=== PATIENT | male | born 1960 | race Caucasian/White ===

== ENCOUNTER → 2018-02-08 | Outpatient (REF) | payer OTHER | LOC: M SMT 11:12 | DX: R97.20 Elevated prostate specific antigen [PSA] (principal) | CPT/HCPCS: 87086 ==

== ENCOUNTER → 2018-02-21 | Outpatient (REF) | payer OTHER ==
[2018-02-21 13:35] LABS: BASO # 0.1 10^3/uL (0.0-0.2); BASO % 1.1 % (0.0-1.0); EOS # 0.1 10^3/uL (0.0-0.50); EOS % 1.7 % (0.0-3.0); HEMATOCRIT 49.1 % (42.0-52.0); HEMOGLOBIN 16.9 g/dl (13.5-17.5); IMMATURE GRANULOCYTE % 0.4 % (0-3.0); LYMPH # 1.3 10^3/uL (1.5-4.5); LYMPH % 27.3 % (24.0-44.0); MEAN CORPUSCULAR HEMOGLOBIN 32.1 pg (27.0-33.0); MEAN CORPUSCULAR HGB CONC 34.4 g/dl (32.0-36.5); MEAN CORPUSCULAR VOLUME 93.3 fl (80.0-96.0); MONO # 0.4 10^3/uL (0.0-0.8); MONO % 8.3 % (0.0-5.0); NEUTROPHILS # 2.9 10^3/uL (1.8-7.7); NEUTROPHILS % 61.2 % (36.0-66.0); PLATELET COUNT, AUTOMATED 192 10^3/uL (150-450); RED BLOOD COUNT 5.26 10^6/uL (4.30-6.10); RED CELL DISTRIBUTION WIDTH 12.6 % (11.5-14.5); WHITE BLOOD COUNT 4.7 10^3/uL (4.0-10.0)
[2018-02-21 14:02] LABS: ERYTHROCYTE SEDIMENTATION RATE 2 mm/hr (0-20)
[2018-02-21 14:25] LABS: ALBUMIN 4.3 GM/DL (3.2-5.2); ALBUMIN/GLOBULIN RATIO 1.43 (1.00-1.93); ALKALINE PHOSPHATASE 59 U/L (45-117); ALT/SGPT 38 U/L (12-78); ANION GAP 8 MEQ/L (8-16); AST/SGOT 21 U/L (7-37); BILIRUBIN,TOTAL 0.5 MG/DL (0.2-1.0); BLOOD UREA NITROGEN 16 MG/DL (7-18); CALCIUM LEVEL 9.6 MG/DL (8.5-10.1); CARBON DIOXIDE LEVEL 28 MEQ/L (21-32); CHLORIDE LEVEL 103 MEQ/L (98-107); CREATININE FOR GFR 1.17 MG/DL (0.70-1.30); GLOMERULAR FILTRATION RATE > 60.0 (>56); GLUCOSE, FASTING 116 MG/DL (70-100); POTASSIUM SERUM 4.3 MEQ/L (3.5-5.1); RHEUMATOID FACTOR QUANT < 10.0 IU/ML (<15.0); SODIUM LEVEL 139 MEQ/L (136-145); TOTAL PROTEIN 7.3 GM/DL (6.4-8.2)
[2018-02-21 14:35] LABS: ESTIMATED AVERAGE GLUCOSE 117 MG/DL (60-110); HEMOGLOBIN A1c 5.7 %
[2018-02-22 09:57] LABS: PTT LUPUS TYPE ANTICOAG SCREEN 0.9 (0-1.2)
[2018-02-22 10:01] LABS: ALBUMIN 4.64 GM/DL (3.29-5.55); ALBUMIN % 63.6 % (55.8-66.1); ALPHA-1-GLOBULIN % 3.5 % (2.9-4.9); ALPHA-1-GLOBULINS 0.26 GM/DL (0.17-0.41); ALPHA-2-GLOBULINS 0.58 GM/DL (0.42-0.99); ALPHA-2-GLOBULINS % 7.9 % (7.1-11.8); BETA-1-GLOBULINS 0.39 GM/DL (0.28-0.60); BETA-1-GLOBULINS % 5.3 % (4.7-7.2); BETA-2-GLOBULINS 0.35 GM/DL (0.19-0.55); BETA-2-GLOBULINS % 4.8 % (3.2-6.5); GAMMA GLOBULIN % 14.9 % (11.1-18.8); GAMMA GLOBULINS 1.09 GM/DL (0.65-1.58)
[2018-02-27 00:06] LABS: ANTI DOUBLE STRAND-DNA AB 1 IU/mL (0-9); ANTINUCLEAR ANTIBODIES DIRECT Negative (Negative); CERULOPLASMIN 20.8 mg/dL (16.0-31.0); COPPER PLASMA 83 ug/dL (72-166); LEAD BLOOD ADULT 2 ug/dL (0-4); MERCURY LEVEL 1.6 ug/L (0.0-14.9); SJOGREN'S ANTI SS-A <0.2 AI (0.0-0.9); SJOGREN'S ANTI SS-B <0.2 AI (0.0-0.9); VITAMIN B1 LEVEL WHOLE BLOOD 137.5 nmol/L (66.5-200.0); VITAMIN B6,PYRIDOXAL PHOSPHATE 12.6 ug/L (5.3-46.7); VITAMIN E(ALPHA TOCOPHEROL) 12.2 mg/L (7.0-25.1); VITAMIN E(GAMMA TOCOPHEROL) 2.6 mg/L (0.5-5.5)
== END ==
LOC: M LABNEURO 08:51
DX: G62.9 Polyneuropathy, unspecified (principal)

== ENCOUNTER → 2018-05-16 | Outpatient (REF) | payer OTHER ==
[~2018-05-16] MED LIST: MEGA RED PO; [UNRECOGNIZED DRUG - OTHER] PO
[2018-05-18 14:36] LABS: PSA TOTAL 3.5 ng/mL (0.0-4.0)
== END ==
LOC: M LAB REF 16:39
PROVIDERS: ATTEND Nurse Practitioner Family
DX: R97.20 Elevated prostate specific antigen [PSA] (principal)

== ENCOUNTER → 2018-11-14 | Outpatient (REF) | payer OTHER ==
[2018-11-15 14:07] LABS: PSA TOTAL 2.5 ng/mL (0.0-4.0)
== END ==
LOC: M LAB REF 12:37
PROVIDERS: ATTEND Nurse Practitioner Family
DX: R97.20 Elevated prostate specific antigen [PSA] (principal)

== ENCOUNTER 2019-03-08 08:37 | Day surgery (SDC) | payer BC, OTHER ==
[~2019-03-08] VITALS: Ht 188 cm; Wt 111.9 kg
[~2019-03-08 08:37] MED LIST changes: +LIDOCAINE 2% INJ 100 MG/5 ML SDV (FOR ANES.) As Ordered ONE; +NS 1,000 ML IV ONE; +PROPOFOL 200 MG/20 ML VIAL As Ordered ONE; +PROS5TAB PO
[2019-03-08] MEDS ORDERED: PROPOFOL 200 MG/20 ML VIAL As Ordered ONE ×2 (10:08→10:24)
[2019-03-08] MEDS ORDERED: LIDOCAINE 2% INJ 100 MG/5 ML SDV (FOR ANES.) As Ordered ONE (10:08)
--- NOTE | 2019-03-08 10:36 | ROOR ---
Patient Name: Kian Navas Procedure Date: 03/08/2019 10:04 AM Date of : 1960 Age: 58 Room: [facility] Gender: Male Note Status: Finalized Procedure: Total Colonoscopy to Cecum + Cold Snare Polypectomy + Hemoclips Indications: High risk colon cancer surveillance: Personal history of colonic polyps, Last colonoscopy: 2013 Providers: Phil Benson MD Referring MD: IESHA MAYFIELD NP Requesting Provider: Medicines: Monitored Anesthesia Care Complications: No immediate complications. Procedure: Pre-Anesthesia Assessment: - The heart rate, respiratory rate, oxygen saturations, blood pressure, adequacy of pulmonary ventilation, and response to care were monitored throughout the procedure. The Colonoscope was introduced through the anus and advanced to the cecum, identified by appendiceal orifice and ileocecal valve. The colonoscopy was performed without difficulty. The patient tolerated the procedure well. The quality of the bowel preparation was excellent. Findings: The perianal and digital rectal examinations were normal. Non-bleeding internal hemorrhoids were found during retroflexion. The hemorrhoids were small and Grade I (internal hemorrhoids that do not prolapse). Scattered small-mouthed diverticula were found in the recto-sigmoid colon, sigmoid colon and descending colon. A large polyp was found in the mid ascending colon. The polyp was sessile. The polyp was removed with a cold snare. Resection and retrieval were complete. To prevent bleeding after the polypectomy, two hemostatic clips were successfully placed (MR conditional). There was no bleeding at the end of the procedure. The exam was otherwise without abnormality on direct and retroflexion views. Impression: - Non-bleeding internal hemorrhoids. - Diverticulosis in the recto-sigmoid colon, in the sigmoid colon and in the descending colon. - One large polyp in the mid ascending colon, removed with a cold snare. Resected and retrieved. Clips (MR conditional) were placed. - The examination was otherwise normal on direct and retroflexion views. - The exam was otherwise normal to the cecum. Recommendation: - Patient has a contact number available for emergencies. The signs and symptoms of potential delayed complications were discussed with the patient. Return to normal activities tomorrow. Written discharge instructions were provided to the patient. - High fiber diet. - Discharge patient to home. - Continue present medications. - Await pathology results. - Telephone GI clinic for pathology results in 1 week. - Repeat colonoscopy in 5 years for surveillance based on pathology results. - Return to referring physician. - The findings and recommendations were discussed with the patient's family. Phil Benson MD Phil Benson MD 03/08/2019 10:36:14 AM Electronically signed by Phil Benson MD Number of Addenda: 0 Note Initiated On: 03/08/2019 10:04 AM Estimated Blood Loss: Estimated blood loss: none.
[2019-03-08 11:06] VITALS: BP 111/71
== END 2019-03-08 11:20 | disposition home or self-care (01) ==
LOC: M OPP 08:37
PROVIDERS: ATTEND Internal Medicine Gastroenterology
DX: Z12.11 Encounter for screening for malignant neoplasm of colon (principal); Z86.010 Personal history of colon polyps; K64.0 First degree hemorrhoids; D12.2 Benign neoplasm of ascending colon; K57.30 Diverticulosis of large intestine without perforation or abscess without bleeding; Z79.899 Other long term (current) drug therapy

== ENCOUNTER → 2019-11-14 | Outpatient (REF) | payer OTHER ==
[~2019-11-14] MED LIST changes: -LIDOCAINE 2% INJ 100 MG/5 ML SDV (FOR ANES.) As Ordered ONE; -NS 1,000 ML IV ONE; -PROPOFOL 200 MG/20 ML VIAL As Ordered ONE
== END ==
LOC: M WUC 12:41
PROVIDERS: ATTEND Nurse Practitioner Family
DX: R97.20 Elevated prostate specific antigen [PSA] (principal)

== ENCOUNTER → 2020-05-08 | Outpatient (CLI) | payer OTHER, BC | LOC: M LABSMTC 12:15 | PROVIDERS: ATTEND Anesthesiology | DX: Z01.812 Encounter for preprocedural laboratory examination (principal); Z20.822 Contact with and (suspected) exposure to COVID-19 ==

== ENCOUNTER 2020-05-13 12:58 | Day surgery (SDC) | payer BC, OTHER ==
[~2020-05-13] VITALS: Ht 188 cm; Wt 113.8 kg
[~2020-05-13 12:58] MED LIST changes: +NS 1,000 ML IV ONE
--- OUTSIDE RECORDS SUMMARY | 2020-05-13 13:01 | CCD ---
Author Author [facility] Organization [facility] Address Unknown Phone Unavailable Care Team Providers Care Marketing Rotation Associate Name Role Phone Eduar Beltran Unavailable PROBLEMS Type Condition ICD9-CM Code [id number] Code Onset Dates Condition S tatus SNOMED Code Notes Problem Hypertrophy (benign) of pros moeller with urinary obstruction and other lower urinary tract symptoms [LUTS] 600.01 Active 213299641 Problem Elevated prostate specific antigen [PSA] R97.20 Active 782751772 Problem Elevated PSA (prostate specific antigen) 790.93 Active 818844227 Problem Slowing of urinary stream 788.62 Active 040654 02 Problem Nocturia 788.43 Active 497161633 ALLERGIES No Known Allergies ENCOUNTERS from 1960 to 2020-04-22 Encounter Location Date Provider Diagnosis [facility] [id number] [place] [address] [place] [address] Apr Eduar Beltran Elevated prostate specific antigen [PSA] R97.20 IMMUNIZATIONS No Information SOCIAL HISTORY Sex Assigned At : Social History Observation Description Sex Assigned At Unknown Education: Question Answer Notes Level of Education: Finished High School Caodaism: Question Answer Notes Caodaism 21 Religion No hindu beliefs that would impact health care. Sexual Hx: Question Answer Notes Had sex in the last 12 months (vaginal, oral, or anal)? Yes Have you ever had an STD? No with Women only Use protection? No Alcohol Screening: Question Answer Notes Did you have a drink containing alcohol in the past year? Ye s Points 5 Interpretation Positive How often did you have six or more drinks on one occas ion in the past year? Less than monthly (1 point) How many drinks did you have on a typica l day when you were drinking in the past year? 1 or 2 (0 points) How often did you have a drink containing alcohol in t he past year? 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 HAILE 08/2015 Surgical History COLONOSCOPY X2 2014 Surgical History CARPEL TUNNEL SURGERY AUGUST 13, 2018 Hospitalization History Appendicitis 1972 Goals Section No Information Health Concerns No Information MEDICAL EQUIPMENT No Information MENTAL STATUS No Information FUNCTIONAL STATUS No Information ASSESSMENTS Encounter Date Diagnosis Assessment Notes Treatment Notes Treatm ent Clinical Notes Apr, Elevated prostate specific antigen [PSA] (ICD-10 - R97.20) PLAN OF TREATMENT Medication Medication Name Sig Start Date Stop Date Finasteride 5 MG 1 tablet Orally Once a day for 90 day(s) Feb Treatment Notes Test Name Order Date PSA FREE & TOTAL 2020-04-22 Next Appt Details Provider Name:Eduar Beltran, 2020-06-03 09:15:00 AM, [address], [place], [address], Insurance Providers Payer Name Payer Address Payer Phone Insured Name Patient Relati onship to Insured Coverage Start Date Coverage End Date [facility] [address] [facility] [id number] AKUA SIMPSON self
--- OUTSIDE RECORDS SUMMARY | 2020-05-13 13:01 | CCD | Continuity of Care Document ---
Author Author Kian [employer] Organization Unknown Address [address] [facility] [address] [place] [address] Phone [phone] Care Team Providers Care Scaler Name Role Phone Ileana Hill AUTM [phone] Palmer Blue MD AUTM [phone] [facility] AUTM Problems Active Problems Provider Date Raised prostate specific antigen Ileana Hill FNP Onset: 12/13/2018 Pure hypercholesterolemia Ileana Hill FNP Onset: 019 Low back pain Ileana Hill FNP Onset: 12/13/2018 Unspecified osteoarthritis, unspecified site Ileana Hill FNP Onset: 12/13/2018 Benign prostatic hypertrophy without outflow obstruction Ileana Roldan FNP Onset: 12/13/2018 History of polyp of colon Ileana Hill FNP Onset: 019 Osteoarthritis Ileana Hill FNP Onset: 12/13/2018 Social History Type Date Description Comments Sex Unknown ETOH Use Consumes 1 beer per day Tobacco Use Start: Unknown Patient has never smoked Allergies, Adverse Reactions, Alerts Description No Known Drug Allergies Medications Active Medications SIG Qnty Indications Ordering Provide r Date No OTC Meds Ileana Hill FNP 12/12 Finasteride 5mg Tablets Take 1 Tablet By Mouth Once Daily Unknown Medications Administered in Office Medication SIG Qnty Indications Ordering Provider Date Immunization Adminstration,1 Vaccine/Tox oid Injection SHERRY Stephen 0 Immunization Adminstration,1 Vaccine/Tox oid Injection Ileana HillANGELINAP 01/14/20 18 Immunizations CPT Code Status Date Vaccine Lot # [id number] Given 02/08/2020 Influenza Vaccin e Quadrivalent Preser/Antibiotic Free Im Use [id number] Given 01/13/2018 Influenza Virus Vaccine, Quadrivalent ([id number]), Derived From 7 Given 12/30/2015 Adacel- Tetanus Diphtheria P ertussis (Age64 & Under) [id number] Refused 01/23/2019 Influenza Vaccin e Quadrivalent Preser/Antibiotic Free Im Use Vital Signs Date Vital Result Comment 02/08/2020 9:35am BP Systolic 108 mmHg LT Arm BP Diastolic 74 mmHg LT Arm Heart Rate 76 /min Height 74 inches 6'2" Weight 241.00 lb BMI (Body Mass Index) 30.9 kg/m2 01/23/2019 9:24am BP Systolic 114 mmHg RT Arm BP Diastolic 70 mmHg RT Arm Heart Rate 84 /min Height 74 inches 6'2" Weight 247.00 lb O2 % BldC Oximetry 98 % RM Air BMI (Body Mass Index) 31.7 kg/m2 Results Test Acquired Date Facility Test Result H/L Range Note Basic Metabolic Panel 02/08/2020 [facility] Pattern Duplicator: [place] [address] [phone] Glucose 106 mg/dL High 74 - 99 1 BUN 15 mg/dL 7 - 18 Creatinine 1.1 mg/dL 0.6 - 1.3 Sodium 141 mEq/L 136 - 145 Potassium 4.1 mEq/L 3.5 - 5.1 Chloride 103 mEq/L 98 - 107 Carbon Dioxide 27 mEq/L 21 - 32 Calcium 9.1 mg/dL 8.5 - 10.1 GFR >= 60 mL/min >60 GFR >= 60 mL/min >60 2 Lipid Profile 02/08/2020 [facility] Pattern Duplicator: [place] [address] [phone] Cholesterol 208 mg/dL High 131 - 200 Triglycerides 133 mg/dL 30 - 150 HDL Cholesterol 41 mg/dL 35 - 60 LDL (Calculated) 140 CALC 50 - 159 1 100-125 mg/dL PRE-DIABET ES/FASTING >126 mg/dL DIABETES/FASTING 2 CHRONIC KIDNEY DISEASE STAGI NG PER NKF STAGE I & II GFR >= 60 NORMAL TO MILDLY DECREASED STAGE III GFR 30-59 MODERATELY DECREASED STAGE IV GFR 15-29 SEVERELY DECREASED STAGE V GFR <15 VERY LITTLE GFR LEFT ESRD GFR <15 ON ARTS ADMINISTRATOR Procedures Date Code Description Status 03/08/2019 [id number] Colonoscopy Completed 01/17/2014 [id number] Colonoscopy Completed 12/01/2010 [id number] Colonoscopy Completed Medical Devices Description No Information Available Encounters Type Date Location Provider Dx Diagnosis Office Visit 02/08/2020 9:40a [facility] Brigida albright, [facility] Z00.00 Encntr for general adult medical exam w/ o abnormal findings E78.00 Pure hypercholesterolemia, u nspecified M19.90 Unspecified osteoarthritis, unspecified site N40.0 Benign prostatic hyperplasia without lower urinry tract symp R97.20 Elevated prostate specific a ntigen [PSA] M54.5 Low back pain E66.09 Other obesity due to excess calories Z68.30 Body mass index [BMI]30.0-30 .9, adult Z23 Encounter for immunization Z13.89 Encounter for screening for other disorder Assessments Date Code Description Provider 02/08/2020 Z00.00 Encounter for genera l adult medical examination without abnormal findings Brigida Alfaro, [facility] 02/08/2020 E78.00 Pure hypercholesterolemia, unspe cified Brigida Alfaro, [facility] 02/08/2020 M19.90 Unspecified osteoarthritis, unsp ecified site Brigida Alfaro, [facility] 02/08/2020 N40.0 Benign prostatic hyp erplasia without lower urinary tract symptoms Brigida Alfaro, [facility] 02/08/2020 R97.20 Elevated prostate specific antig en [PSA] Brigida Alfaro, [facility] 02/08/2020 M54.5 Low back pain Brigida Alfaro, [facility] [employer] 02/08/2020 E66.09 Other obesity due to excess carlton gabriella Brigida Alfaro, [facility] 02/08/2020 Z68.30 Body mass index [BMI]30.0-30.9, adult Brigida Alfaro [facility] 02/08/2020 Z23 Encounter for immunization Clotilde Alfaro, [facility] 02/08/2020 Z13.89 Encounter for screening for othe r disorder SHERRY Stephen Plan of Treatment Future Appointment(s):* 02/10/2021 8:00 am - SHERRY Stephen at [facility] 02/08/2020 - SHERRY Stephen* Z00.00 Encounter for general adult medical examination without abnormal findings* Comments:* Follow up annually. Normal exam and is generally healthy. May RTC PRN. * E78.00 Pure hypercholesterolemia, unspecified* Comments:* Encouraged Mediterranean diet; Low fat/high fiber diet encouraged coupled with regular exercise. Weight loss would be encouraged. * M19.90 Unspecified osteoarthritis, unspecified site* Comments:* May use Tylenol PRN. * N40.0 Benign prostatic hyperplasia without lower urinary tract symptoms* Comments:* Follows with urology and continues on Finasteride. * R97.20 Elevated prostate specific antigen [PSA]* Comments:* Again, follows with urology. * M54.5 Low back pain* Comments:* Having some pain today. Conservative management with heat TID, topical analgesics as directed as well as rotating ibuprofen/acetaminophen as directed. Rest and avoid activity that will aggrevate the pain. * Recommendations:* Weight loss would be favorable. * E66.09 Other obesity due to excess calories* Comments:* Weight loss would be favorable.Implement dietary modifications (low fat, low carb, high fiber, lean proteins, decreasing portion sizes, small frequent high protein snacks, and making substitutions in refined sugars).Implement regular exercise as tolerated and increase daily water intake. * Z68.30 Body mass index [BMI]30.0-30.9, adult * Z23 Encounter for immunization* Comments:* Declines the Shingrix. * Z13.89 Encounter for screening for other disorder * All * Comments:* Follow up in one year with repeat labs at that time.Encouraged balanced diet, 4-5 servings of fresh fruits and vegetables daily. Recommended at least 30 minutes of exercise daily and eight 8 oz. glasses of water daily.Testicular self exams encouraged monthly.Colonoscopy UTD.Flu vaccination: given today.Shingrix: declinedRTC PRN for acute illness. COVID precautions are discussed and social distancing/mask use/ frequent hand washing and sanitizing are encouraged. Functional Status Description No Information Available Mental Status Description No Information Available Referrals Description No Information Available
--- OUTSIDE RECORDS SUMMARY | 2020-05-13 13:01 | CCD ---
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 Role Phone Mary Grace Benson MD Unavailable Unavailable Mary Grace Benson MD Unavailable Unavailable Mary Grace Benson MD Unavailable Unavailable Mary Grace Benson MD Unavailable Unavailable Mary Grace Benson MD Unavailable Unavailable Mary Grace Benson MD Unavailable Unavailable Mary Grace Benson MD Unavailable Unavailable Mary Grace Benson MD Unavailable Unavailable Mary Grace Benson MD Unavailable Unavailable Mary Grace Benson MD Unavailable Unavailable Mary Grace Benson MD Unavailable Unavailable Mary Grace Benson MD Unavailable Unavailable Mary Grace Benson MD Unavailable Unavailable Mary Grace Benson MD Unavailable Unavailable Mary Grace Benson MD Unavailable Unavailable Mary Grace Benson MD Unavailable Unavailable Mary Grace Benson MD Unavailable Unavailable Mary Grace Benson MD Unavailable Unavailable Mary Grace Benson MD Unavailable Unavailable Mary Grace Benson MD Unavailable Unavailable Mary Grace Benson MD Unavailable Unavailable Mary Grace Benson MD Unavailable Unavailable Mary Grace Benson MD Unavailable Unavailable Mary Grace Benson MD Unavailable Unavailable Mary Grace Benson MD Unavailable Unavailable Mary Grace Benson MD Unavailable Unavailable Mary Grace Benson MD Unavailable Unavailable Mary Grace Benson MD Unavailable Unavailable Mary Grace Benson MD Unavailable Unavailable Mary Grace Benson MD Unavailable Unavailable Mary Grace Benson MD Unavailable Unavailable Mary Grace Benson MD Unavailable Unavailable Mary Grace Benson MD Unavailable Unavailable Mary Grace Benson MD Unavailable Unavailable Mary Grace Benson MD Unavailable Unavailable Mary Grace Benson MD Unavailable Unavailable Mary Grace Benson MD Unavailable Unavailable Mary Grace Benson MD Unavailable Unavailable Mary Grace Benson MD Unavailable Unavailable Mary Grace Benson MD Unavailable Unavailable Mary Grace Benson MD Unavailable Unavailable Mary Grace Benson MD Unavailable Unavailable Mary Grace Benson MD Unavailable Unavailable Mary Grace Benson MD Unavailable Unavailable Mary Grace Benson MD Unavailable Unavailable Mary Grace Benson MD Unavailable Unavailable Mary Grace Benson MD Unavailable Unavailable Mary Grace Benson MD Unavailable Unavailable Angelina, Brigida SHOP HAND Unavailable Unavailable Angelina, Brigida SHOP HAND Unavailable Unavailable Angelina, Brigida SHOP HAND Unavailable Unavailable Angelina, Brigida SHOP HAND Unavailable Unavailable Angelina, Brigida SHOP HAND Unavailable Unavailable Angelina, Brigida SHOP HAND Unavailable Unavailable Angelina, Brigida SHOP HAND Unavailable Unavailable Angelina, Brigida SHOP HAND Unavailable Unavailable Angelina, Brigida SHOP HAND Unavailable Unavailable Angelina, Brigida SHOP HAND Unavailable Unavailable Angelina, Brigida SHOP HAND Unavailable Unavailable Angelina, Brigida SHOP HAND Unavailable Unavailable Angelina, Brigida SHOP HAND Unavailable Unavailable Angelina, Brigida SHOP HAND Unavailable Unavailable Angelina, Brigida SHOP HAND Unavailable Unavailable Angelina, Brigida SHOP HAND Unavailable Unavailable Angelina, Brigida SHOP HAND Unavailable Unavailable Angelina, Brigida SHOP HAND Unavailable Unavailable Angelina, Brigida SHOP HAND Unavailable Unavailable Angelina, Brigida SHOP HAND Unavailable Unavailable Angelina, Brigida SHOP HAND Unavailable Unavailable Angelina, Brigida SHOP HAND Unavailable Unavailable Angelina, Brigida SHOP HAND Unavailable Unavailable Angelina, Brigida SHOP HAND Unavailable Unavailable Angelina, Brigida SHOP HAND Unavailable Unavailable Angelina, Brigida SHOP HAND Unavailable Unavailable Angelina, Brigida SHOP HAND Unavailable Unavailable Julio FIELDS MD Unavailable Unavailable Julio FIELDS MD Unavailable Unavailable Julio FIELDS MD Unavailable Unavailable Julio FIELDS MD Unavailable Unavailable Julio FIELDS MD Unavailable Unavailable Julio FIELDS MD Unavailable Unavailable Julio FIELDS MD Unavailable Unavailable Julio FIELDS MD Unavailable Unavailable Julio FIELDS MD Unavailable Unavailable Julio FIELDS MD Unavailable Unavailable Julio FIELDS MD Unavailable Unavailable Julio FIELDS MD Unavailable Unavailable Julio FIELDS MD Unavailable Unavailable HAHER, R FARRUKH SAMUELS Unavailable Unavailable HAHER, R FARRUKH SAMUELS Unavailable Unavailable HAHER, R FARRUKH Unavailable Unavailable HAHER, R FARRUKH SAMUELS Unavailable Unavailable HAHER, R FARRUKH SAMUELS Unavailable Unavailable HAHER, R FARRUKH SAMUELS Unavailable Unavailable HAHER, R FARRUKH SAMUELS Unavailable Unavailable HAHER, R FARRUKH SAMUELS Unavailable Unavailable HAHER, R FARRUKH SAMUELS Unavailable Unavailable HAHER, R FARRUKH SAUMELS Unavailable Unavailable HAHER, R FARRUKH SAMUELS Unavailable Unavailable HAHER, R FARRUKH SAMUELS Unavailable Unavailable HAHER, R FARRUKH SAMUELS Unavailable Unavailable HAHER, R FARRUKH SAMUELS Unavailable Unavailable HAHER, R FARRUKH SAMUELS Unavailable Unavailable HAHER, R FARRUKH SAMUELS Unavailable Unavailable HAHER, R FARRUKH SAMUELS Unavailable Unavailable HAHER, R FARRUKH SAMUELS Unavailable Unavailable HAHER, R FARRUKH SAMUELS Unavailable Unavailable HAHER, R FARRUKH SAMUELS Unavailable Unavailable HAHER, R FARRUKH SAMUELS Unavailable Unavailable HAHER, R FARRUKH SAMUELS Unavailable Unavailable HAHER, R FARRUKH SAMUELS Unavailable Unavailable HAHER, R FARRUKH SAMUELS Unavailable Unavailable HA, R FARRUKH SAMUELS Unavailable Unavailable HAHER, R FARRUKH SAMUELS Unavailable Unavailable HAHER, R FARRUKH SAMUELS Unavailable Unavailable HAHER, R FARRUKH SAMUELS Unavailable Unavailable HAHER, R FARRUKH SAMUELS Unavailable Unavailable HA, R FARRUKH SAMUELS Unavailable Unavailable HA, R FARRUKH SAMUELS Unavailable Unavailable HA, R FARRUKH SAMUELS Unavailable Unavailable HA, R FARRUKH SAMUELS Unavailable Unavailable HA, R FARRUKH SAMUELS Unavailable Unavailable HA, R FARRUKH SAMUELS Unavailable Unavailable HA, R FARRUKH SAMUELS Unavailable Unavailable HAHER, R FARRUKH SAMUELS Unavailable Unavailable HAHER, R FARRUKH SAMUELS Unavailable Unavailable HAHER, R FARRUKH SAMUELS Unavailable Unavailable HA, R FARRUKH SAMUELS Unavailable Unavailable HA, R FARRUKH SAMUELS Unavailable Unavailable HAHER, R FARRUKH SAMUELS Unavailable Unavailable HAHER, R FARRUKH SAMUELS Unavailable Unavailable HAHER, R FARRUKH SAMUELS Unavailable Unavailable HAHER, R FARRUKH SAMUELS Unavailable Unavailable HAHER, R FARRUKH SAMUELS Unavailable Unavailable HAHER, R FARRUKH SAMUELS Unavailable Unavailable HAHER, R FARRUKH SAMUELS Unavailable Unavailable HAHER, R FARRUKH SAMUELS Unavailable Unavailable HAHER, R FARRUKH SAMUELS Unavailable Unavailable HAHER, R FARRUKH SAMUELS Unavailable Unavailable HA, R FARRUKH SAMUELS Unavailable Unavailable HA, R FARRUKH SAMUELS Unavailable Unavailable HA, R FARRUKH SAMUELS Unavailable Unavailable HA, R FARRUKH SAMUELS Unavailable Unavailable HAHER, R FARRUKH SAMUELS Unavailable Unavailable HA, R FARRUKH SAMUELS Unavailable Unavailable HAHER, R FARRUKH SAMUELS Unavailable Unavailable HAHER, R FARRUKH SAMUELS Unavailable Unavailable Re-disclosure Warning The records that you are about to access may contain information from federally-assisted alcohol or drug abuse programs. If such information is present, then the following federally mandated warning applies: This information has been disclosed to you from records protected by federal confidentiality rules (42 CFR part 2). The federal rules prohibit you from making any further disclosure of this information unless further disclosure is expressly permitted by the written consent of the person to whom it pertains or as otherwise permitted by 42 CFR part 2. A general authorization for the release of medical or other information is NOT sufficient for this purpose. The Federal rules restrict any use of the information to criminally investigate or prosecute any alcohol or drug abuse patient.The records that you are about to access may contain highly sensitive health information, the redisclosure of which is protected by Article 27-F of the [facility] Public Health law. If you continue you may have access to information: Regarding HIV / AIDS; Provided by facilities licensed or operated by the [facility] Office of Mental Health; or Provided by the [facility] Office for People With Developmental Disabilities. If such information is present, then the following [facility] mandated warning applies: This information has been disclosed to you from confidential records which are protected by state law. State law prohibits you from making any further disclosure of this information without the specific written consent of the person to whom it pertains, or as otherwise permitted by law. Any unauthorized further disclosure in violation of state law may result in a fine or fpc sentence or both. A general authorization for the release of medical or other information is NOT sufficient authorization for further disc losure. Family History Family Member Name Family Member Gender Family Member Status Date o f Status Description Data Source(s) Unknown Male Problem [facility] ([facility]) Unknown Male Problem [facility] ([facility]) Unknown Unknown Problem [facility] ([facility] Unknown Unknown Problem [facility] ([facility] Unknown Unknown Problem [facility] ([facility]) Unknown Unknown Problem [facility] ([facility]) Unknown Unknown Problem [facility] ([facility]) Unknown Unknown Problem [facility] ([facility]) Encounters Encounter Providers Location Date Indications Data Source(s ) Outpatient Attender: Phil Benson MD Main Office 05/02/2020 09:45:00 AM EST [facility] ([facility]) Unknown [address] [place] [address] 04/22/2020 12:00:00 AM EST [facility] Outpatient Attender: Brigida Werner 09:40:00 AM EDT [facility] ([facility] ) Recurring Patient Referrer: FARRUKH FIELDS MD 08/28/2019 08: 39:14 AM EDT [facility] Immunizations Vaccine Date Status Description Data Source(s) Influenza, injectable, MDCK, preservative free, lisset valent 02/08/2020 09:36:00 AM EDT completed [facility] ([facility]) Medications Medication Brand Name Start Date Product Form Dose Route Admi nistrative Instructions Pharmacy Instructions Status Indications Reaction Description Data Source(s) Sutab Sutab 05/02/2020 12:00:00 AM EST active [facility] ([facility]) Immunization Adminstration,1 Vaccine/Toxoid 02/08/2020 12:00 :00 AM EDT completed [facility] ([facility]) Medication administered onsite Insurance Providers Payer name Policy type / Coverage type Policy ID Covered green party ID Covered green party's relationship to john Policy John Plan Information [facility] [id number] SP [id number] [facility] [id number] SP [id number] [place] Plan F [id number] [facility] [id number] SP [id number] [facility] Health Maintenance Organization (HMO) [id number] Self [id number] [facility] Health Maintenance Organization (HMO) [id number] Self [id number] ANSI-Commercial [id number] ANSI-Commercial [id number] ANSI-Commercial [id number] ANSI-Commercial [id number] ANSI-Commercial [id number] [employer] [employer] [facility] Health Maintenance Organization (HMO) [id number] Self [id number] Workers Compensation Workers Compensation [id number] Self [id number] [employer] [facility] [place] Commercial [id number] Self [id number] [place] [facility] Health Maintenance Organization (HMO) [id number] Self [id number] [place] [facility] Health Maintenance Organization (HMO) [id number] Self [id number] Workers Compensation Workers Compensation [id number] Self [id number] [employer] [facility] [place] Commercial [id number] Self [id number] [place] [facility] Health Maintenance Organization (HMO) Self [employer] [id number] SP [id number] Workers Compensation Workers Compensation Self [facility] [place] Commercial Self BCBS EMPIRE [employer] DIV [id number] SP [id number] [facility]() Workers Compensation Self [facility] [place] Commercial Self [employer] [id number] SP [id number] [employer] O [id number] S [id number] [employer] [id number] S [id number] Results ID Date Data Source [id number] 05/08/2020 12:00:00 PM EST [facility] Name Value Range Interpretation Code Description Data Namita rce(s) Supporting Document(s) SARS coronavirus 2 RNA Not Detected [facility] [place] This lab was ordered by [facility] and reported by [facility]. ID Date Data Source [id number] 02/08/2020 09:55:00 AM EDT [facility] ([facility]) Name Value Range Interpretation Code Description Data Namita rce(s) Supporting Document(s) Cholesterol [Mass/volume] in Serum or Plasma 208 mg/dL 131-200 [facility] ([facility]) Triglyceride [Mass/volume] in Serum or Plasma 133 mg/dL 30-150 [facility] ([facility]) Cholesterol in HDL [Mass/volume] in Serum or Plasma 41 mg/dL 35-60 [facility] ([facility]) Cholesterol in LDL [Mass/volume] in Serum or Plasma by calcu lation 140 CALC 50-159 [facility] ([facility]) ID Date Data Source [id number] 02/08/2020 09:55:00 AM EDT [facility] Name Value Range Interpretation Code Description Data Namita rce(s) Supporting Document(s) Urea nitrogen [Mass/volume] in Serum or Plasma 15 mg/dL 7-18 [facility] ([facility]) Creatinine 1.1 mg/dL 0.6-1.3 [facility]) Glucose [Mass/volume] in Serum or Plasma 106 mg/dL 74-99 [facility] ([facility]) 100-125 mg/dL PRE-DIABETES/FASTING >126 mg/dL DIABETES/FASTING Sodium [Moles/volume] in Serum or Plasma 141 meq/L 136-145 [facility] ([facility]) Potassium [Moles/volume] in Serum or Plasma 4.1 meq/L 3.5-5.1 [facility] ([facility]) Chloride [Moles/volume] in Serum or Plasma 103 meq/L 98-107 [facility] ([facility]) Glomerular filtration rate/1.73 sq M pre dicted among blacks [Volume Rate/Area] in Serum or Plasma by Creatinine-based formula (MDRD) Laboratory test result [facility] <content>CHRONIC KIDNEY DISEASE STAGING PER NKF</content>
<content></content>
<content>STAGE I & II GFR >= 60 NORMAL TO MILDLY DECREASED</content>
<content>STAGE III GFR 30-59 MODERATELY DECREASED</content>
<content>STAGE IV GFR 15-29 SEVERELY DECREASED</content>
<content>STAGE V GFR <15 VERY LITTLE GFR LEFT</content>
<content>ESRD GFR <[address] SCAN TECH</content>
<content></content> Glomerular filtration rate/1.73 sq M pre dicted among non-blacks [Volume Rate/Area] in Serum or Plasma by Creatinine-based formula (MDRD) Laboratory test result [facility] ([facility] ) Calcium [Mass/volume] in Serum or Plasma 9.1 mg/dL 8.5-10.1 [facility] ([facility]) Carbon dioxide, total [Moles/volume] in Serum or Plasma 27 meq/L 21 -32 [facility]) Procedure Vital Signs ID Date Data Source UNK Name Value Range Interpretation Code Description Data Source(s) Body temperature 97.5 [degF] 97.5 [degF] [facility] ([facility] Body weight 115.214 kg 115.214 kg [facility] ([facility]) Body mass index (BMI) [Ratio] 32.6 kg/m2 32.6 k g/m2 [facility] ([facility]) Heart rate 65 /min 65 /min [facility] ([facility]) Diastolic blood pressure 83 mm[Hg] 83 mm[Hg] [facility] ([facility]) Systolic blood pressure 132 mm[Hg] 132 mm[Hg] [facility] Body weight 254.00 [lb_av] 254.00 [lb_av] [facility] ([facility]) Body height 74 [in_i] 74 [in_i] [facility] ([facility]) 6'2" Body mass index (BMI) [Ratio] 30.9 kg/m2 30.9 k g/m2 [facility] ([facility]) Body weight 241.00 [lb_av] 241.00 [lb_av] [facility] T ([facility]) Body height 74 [in_i] 74 [in_i] [facility] ([facility]) 6'2" Heart rate 76 /min 76 /min [facility] ([facility]) Diastolic blood pressure 74 mm[Hg] 74 mm[Hg] [facility] ([facility]) LT Arm Systolic blood pressure 108 mm[Hg] 108 mm[Hg] M MIGUEL ([facility]) LT Arm
--- OUTSIDE RECORDS SUMMARY | 2020-05-13 13:01 | CCD | Continuity of Care Document ---
Author Author Kian BENSON M.D. Organization Unknown Address [address] [place] [address] Phone [phone] Care Team Providers Care Wind Operations Supervisor Name Role Phone Brigida Alfaro AUTM [phone] Problems Active Problems Provider Date Screening for malignant neoplasm of colon Phil read M.D. Onset: 02/14/2019 Hemorrhage of rectum and anus Kay SilvaA.N.PJulia Onset : 12/20/2013 History of polyp of colon Sailaja PleitezNAlyse Onset: Social History Type Date Description Comments Sex Unknown ETOH Use Occasionally Tobacco Use Start: Unknown Patient has never smoked Allergies, Adverse Reactions, Alerts Description No Known Drug Allergies Medications Active Medications SIG Qnty Indications Ordering Provide r Date Sutab [id number] Tablets as directed 1box Phil Benson M.D. 05/02/2020 Finasteride 5mg Tablets Take 1 Tablet By Mouth Once Daily Unknown Immunizations Description No Information Available Vital Signs Date Vital Result Comment 05/02/2020 11:40am Height 74 inches 6'2" Weight 254.00 lb BP Systolic 132 mmHg BP Diastolic 83 mmHg Heart Rate 65 /min BMI (Body Mass Index) 32.6 kg/m2 Weight 115.214 kg Body Temperature 97.5 F 02/14/2019 11:55am Height 74 inches 6'2" Weight 249.00 lb BP Systolic 134 mmHg BP Diastolic 89 mmHg Heart Rate 75 /min BMI (Body Mass Index) 32.0 kg/m2 Weight 112.946 kg Results Description No Information Available Procedures Description No Information Available Medical Devices Description No Information Available Encounters Type Date Location Provider Dx Diagnosis Office Visit 05/02/2020 10:45a Main Office Phil Benson M.D. D 37.4 Neoplasm of uncertain behavior of colon Assessments Date Code Description Provider 05/02/2020 D37.4 Neoplasm of uncertain behavior o f ascending colon Phil Benson M.D. Plan of Treatment Future Appointment(s):* 05/13/2020 2:30 pm - Phil Benson M.D. at Main Office 05/02/2020 - Phil Benson M.D.* D37.4 Neoplasm of uncertain behavior of ascending colon* Comments:* 59 yo wm who presents for a colonoscopy due to a h/o a tubullovillous adenoma of the ascending colon. Last scope was in 2019. No c/o abdominal pain, weight loss, change in bowel habits, or rectal bleeding. No family h/o colon cancer. No h/o chest pain, or sob. Plan:1. Colonoscopy to cecum.2. Informed consent given. Functional Status Description No Information Available Mental Status Description No Information Available Referrals Description No Information Available
[2020-05-13] MEDS ORDERED: LIDOCAINE 2% 100MG/5ML SDV (FOR ANES.) As Ordered ONE (14:47)
[2020-05-13] MEDS ORDERED: propofoL 200 MG/20 ML VIAL As Ordered ONE (14:47)
--- NOTE | 2020-05-13 15:13 | ROOR ---
Patient Name: Kian Navas Procedure Date: 05/13/2020 2:41 PM Date of : 1960 Age: 59 Room: [facility] Gender: Male Note Status: Finalized Procedure: Total Colonoscopy to Cecum + Cold Snare Polypectomy Indications: High risk colon cancer surveillance: Personal history of colonic polyps, Last colonoscopy: 2018 Providers: Phil Benson MD Referring MD: Brigida Alfaro NP Requesting Provider: Medicines: Monitored Anesthesia Care Complications: No immediate complications. Procedure: Pre-Anesthesia Assessment: - The heart rate, respiratory rate, oxygen saturations, blood pressure, adequacy of pulmonary ventilation, and response to care were monitored throughout the procedure. The Colonoscope was introduced through the anus and advanced to the cecum, identified by appendiceal orifice and ileocecal valve. The colonoscopy was performed without difficulty. The patient tolerated the procedure well. The quality of the bowel preparation was excellent. Findings: The perianal and digital rectal examinations were normal. Non-bleeding internal hemorrhoids were found during retroflexion. The hemorrhoids were small and Grade I (internal hemorrhoids that do not prolapse). Scattered small-mouthed diverticula were found in the recto-sigmoid colon, sigmoid colon and descending colon. Multiple sessile polyps were found in the cecum. The polyps were medium in size. These polyps were removed with a cold snare. Resection and retrieval were complete. Multiple sessile polyps were found in the hepatic flexure. The polyps were medium in size. These polyps were removed with a cold snare. Resection and retrieval were complete. The exam was otherwise without abnormality on direct and retroflexion views. Impression: - Non-bleeding internal hemorrhoids. - Diverticulosis in the recto-sigmoid colon, in the sigmoid colon and in the descending colon. - Multiple medium polyps in the cecum, removed with a cold snare. Resected and retrieved. - Multiple medium polyps at the hepatic flexure, removed with a cold snare. Resected and retrieved. - The examination was otherwise normal on direct and retroflexion views. - The exam was otherwise normal to the cecum. Recommendation: - Patient has a contact number available for emergencies. The signs and symptoms of potential delayed complications were discussed with the patient. Return to normal activities tomorrow. Written discharge instructions were provided to the patient. - High fiber diet. - Discharge patient to home. - Continue present medications. - Await pathology results. - Telephone GI clinic for pathology results in 1 week. - Repeat colonoscopy in 5 years for surveillance of multiple polyps. - Return to referring physician. - The findings and recommendations were discussed with the patient. Procedure Code(s): --- Professional --- 31594, Colonoscopy, flexible; with removal of tumor(s), polyp(s), or other lesion(s) by snare technique Diagnosis Code(s): --- Professional --- Z86.010, Personal history of colonic polyps K64.0, First degree hemorrhoids K63.5, Polyp of colon K57.30, Diverticulosis of large intestine without perforation or abscess without bleeding CPT copyright 2019 [employer]. All rights reserved. The codes documented in this report are preliminary and upon senior talent management consultant review may be revised to meet current compliance requirements. Phil Benson MD Phil Benson MD 05/13/2020 3:13:08 PM Electronically signed by Phil Benson MD Number of Addenda: 0 Note Initiated On: 05/13/2020 2:41 PM Estimated Blood Loss: Estimated blood loss: none.
[2020-05-13 15:53] VITALS: BP 123/76
== END 2020-05-13 15:52 | disposition home or self-care (01) ==
LOC: M OPP 12:58
PROVIDERS: ATTEND Internal Medicine Gastroenterology
DX: Z12.11 Encounter for screening for malignant neoplasm of colon (principal); Z86.010 Personal history of colon polyps; K64.0 First degree hemorrhoids; K57.30 Diverticulosis of large intestine without perforation or abscess without bleeding; M19.90 Unspecified osteoarthritis, unspecified site; G62.9 Polyneuropathy, unspecified; Z79.899 Other long term (current) drug therapy

== ENCOUNTER → 2020-05-27 | Outpatient (CLI) | payer BC, OTHER ==
[~2020-05-27] MED LIST changes: -NS 1,000 ML IV ONE
[2020-05-29 00:06] LABS: PSA TOTAL 2.4 ng/mL (0.0-4.0)
== END ==
LOC: M WUC 08:56
PROVIDERS: ATTEND Nurse Practitioner Family
DX: R97.20 Elevated prostate specific antigen [PSA] (principal)

== ENCOUNTER → 2020-12-03 | Outpatient (CLI) | payer BC, OTHER | LOC: M WUC 09:00 | PROVIDERS: ATTEND Nurse Practitioner Family | DX: R97.20 Elevated prostate specific antigen [PSA] (principal) ==

== ENCOUNTER → 2022-04-30 | Outpatient (CLI) | payer BC, OTHER | LOC: M RAD 08:18 | PROVIDERS: ATTEND Nurse Practitioner Family | DX: R22.9 Localized swelling, mass and lump, unspecified (principal) ==

== ENCOUNTER → 2022-07-08 | Outpatient (CLI) | payer BC, OTHER ==
[2022-07-09 23:07] LABS: PSA % FREE 30.8 % (.); PSA FREE 1.23 ng/mL
== END ==
LOC: M WUC 09:12
PROVIDERS: ATTEND Urology
DX: N40.0 Benign prostatic hyperplasia without lower urinary tract symptoms (principal)

== ENCOUNTER → 2022-10-22 | Outpatient (CLI) | payer BC, OTHER ==
[~2022-10-22] MED LIST changes: +FINA-48 PO; -PROS5TAB PO
== END ==
LOC: M PLARAD 14:51
PROVIDERS: ATTEND Physician Assistant Medical
DX: D17.39 Benign lipomatous neoplasm of skin and subcutaneous tissue of other sites (principal)

== ENCOUNTER → 2023-04-22 | Outpatient (REF) | payer OTHER | LOC: M LAB REF 16:39 | PROVIDERS: ATTEND Physician Assistant Medical | DX: M19.90 Unspecified osteoarthritis, unspecified site (principal) ==

== ENCOUNTER → 2023-07-21 | Outpatient (REF) | payer MEDICARE, OTHER ==
[2023-07-22 23:07] LABS: PSA TOTAL 2.3 ng/mL (0.0-4.0)
== END ==
LOC: M LABWUC 10:12 → M PLALAB 10:12
PROVIDERS: ATTEND Urology
DX: N40.0 Benign prostatic hyperplasia without lower urinary tract symptoms (principal); R97.20 Elevated prostate specific antigen [PSA]

== ENCOUNTER 2023-10-06 10:40 | Day surgery (SDC) | payer MEDICARE, BC ==
[~2023-10-06] VITALS: Ht 188 cm; Wt 115.4 kg
[~2023-10-06 10:40] MED LIST changes: +MAGN250T7 PO; +TAMS1CAP17 PO
[2023-10-06] MEDS ORDERED: LIDOCAINE 2% 100MG/5ML SDV (FOR ANES.) As Ordered ONE (10:53)
[2023-10-06] MEDS ORDERED: propofoL 200 MG/20 ML VIAL As Ordered ONE (10:53)
[2023-10-06] MEDS: NS 1,000 ML IV ONE (11:14)
[2023-10-06 12:27] VITALS: TEMP 97.7
[2023-10-06 13:16] VITALS: BP 125/73; O2SAT 97
== END 2023-10-06 13:28 | disposition home or self-care (01) ==
LOC: M OPP 10:40
PROVIDERS: ATTEND Internal Medicine Gastroenterology
DX: Z12.11 Encounter for screening for malignant neoplasm of colon (principal); Z86.010 Personal history of colon polyps; Z80.0 Family history of malignant neoplasm of digestive organs; K64.0 First degree hemorrhoids; K57.30 Diverticulosis of large intestine without perforation or abscess without bleeding; K31.89 Other diseases of stomach and duodenum; K22.89 Other specified disease of esophagus; K31.7 Polyp of stomach and duodenum; R12 Heartburn; Z79.899 Other long term (current) drug therapy
CPT/HCPCS: 43239; 88305; G0105

== ENCOUNTER → 2024-05-01 | Outpatient (REF) | payer MEDICARE, BC | LOC: M LAB REF 12:51 | PROVIDERS: ATTEND Surgery | DX: D17.1 Benign lipomatous neoplasm of skin and subcutaneous tissue of trunk (principal) ==

== ENCOUNTER → 2024-08-08 | Outpatient (CLI) | payer MEDICARE, OTHER, BC | LOC: M WUC 09:03 | PROVIDERS: ATTEND Urology | DX: N40.0 Benign prostatic hyperplasia without lower urinary tract symptoms (principal); Z12.5 Encounter for screening for malignant neoplasm of prostate | CPT/HCPCS: 36415; G0103 ==